=== PATIENT | female | born 1960 | race Caucasian/White ===

== ENCOUNTER 2016-10-16 03:37 | Emergency (ER) | payer OTHER ==
--- NOTE | 2016-10-16 06:53 | ER ---
ADMIT: 10/16/2016 RM/LOC: ER [facility] MR#: [id number] [facility] [id number] [place], [place] [id number] [place] [address] Emergency Room Report SEX: F AGE: 56 : 1960 DATE: 10/16/2016 The patient is a 56-year-old female, prior history of renal colic as well as recent UTI. Just completed antibiotic course a week ago. She states she is having increasingly severe right flank pain associated with dysuria and urgency. Denies any fevers, chills, or vomiting. Exam remarkable for nontoxic, afebrile, obese female. Tender right CVA. CT confirms 5 mm distal right UVJ stone with moderate hydro. Slight stranding noted around the right kidney. WBC 11.0, lactic 0.8, CRP 1.66, lipase 294. UA; 2+ leukocyte esterase, trace blood, 20 wbc's 10 rbc's. Culture pending. The patient given 2 g of Rocephin, Zofran, Toradol, Dilaudid with relief of pain. Home with Percocet 5/325 as needed #20, Flomax 0.4 mg in department and daily p.r.n. renal colic #20. Macrobid 100 mg BID, #20. Push fluids. Avoid pop. Strain urine. Follow up Dr. Baldwin or Dr. Wolfe this week. Clint Morton MD/ richardl JOB #: [id number] CC: Clint Morton MD, Attending Physician MD Arie Jaquez MD
== END 2016-10-16 06:40 | disposition home or self-care (01) ==
LOC: ER 03:37
DX: N30.90 Cystitis, unspecified without hematuria (principal); N13.2 Hydronephrosis with renal and ureteral calculous obstruction; I10 Essential (primary) hypertension; E78.5 Hyperlipidemia, unspecified; E03.9 Hypothyroidism, unspecified; M06.9 Rheumatoid arthritis, unspecified; Z98.1 Arthrodesis status; Z86.73 Personal history of transient ischemic attack (TIA), and cerebral infarction without residual deficits